=== PATIENT | female | born 1985 | race Hispanic/Latino ===

== ENCOUNTER 2024-03-09 10:05 | Emergency (ER) | payer BC, MEDICAID ==
[~2024-03-09] VITALS: Ht 162.6 cm; Wt 75.3 kg
[2024-03-09 11:35] VITALS: BP 122/61; PULSE 58; RESP 18; TEMP 98.8; O2SAT 100
[2024-03-09 11:43] LABS: BILIRUBIN,URINE NEGATIVE (NEGATIVE); COLOR,URINE LIGHT-YELLOW (YELLOW); GLUCOSE, URINE (UA) NEGATIVE (NEGATIVE); KETONES,URINE NEGATIVE (NEGATIVE); LEUKOCYTE ESTERASE ,URINE NEGATIVE Leu/uL (NEGATIVE); NITRATE,URINE NEGATIVE (NEGATIVE); OCCULT BLOOD,URINE NEGATIVE (NEGATIVE); PROTEIN,URINE NEGATIVE (NEGATIVE); UROBILINOGEN,URINE 0.2 mg/dL (0.2-1.0)
[2024-03-09 11:48] LABS: ADD UA MICROSCOPIC YES; APPEARANCE,URINE HAZY (CLEAR)
[2024-03-09 11:51] LABS: BACTERIA,URINE RARE /HPF (None Seen); MUCUS,URINE RARE LPF (None Seen); RBC,URINE 0-1 /HPF (0-1); SQUAMOUS EPITHELIAL CELL,UR MOD /HPF (0-2); WBC,URINE 0-1 /HPF (0-1)
--- NOTE | 2024-03-09 11:52 | HMCIMG ---
SACRUM/COCCYX 2+VWS REASON: Pain TECHNIQUE: 4 views of the sacrum were obtained. FINDINGS: There is normal appearance of the sacrum and coccyx. There are no visible fractures. SI joints appear normal as does the symphysis pubis. Soft tissues appear unremarkable as well. There is an IUD visible in the mid pelvis. IMPRESSION: 1. Normal views of the sacrum and coccyx.
--- NOTE | 2024-03-09 11:52 | HMCIMG ---
EXAM: LUMBAR SPINE 4+VWS REASON: Pain. COMPARISON: None. TECHNIQUE: 3 views of the lumbar spine were obtained. FINDINGS: There is normal appearance of the lumbar vertebral bodies. Disc interspace heights are preserved. Alignment is normal. There are no visible fractures. Soft tissues appear unremarkable. IMPRESSION: 1. Normal lumbar spine.
[2024-03-09 11:53] LABS: HCG,QUALITATIVE URINE NEGATIVE (NEGATIVE)
[2024-03-09] MEDS ORDERED: IBUP-2070 PO (12:06)
[2024-03-09] MEDS ORDERED: METH-811 PO (12:06)
--- NOTE | 2024-03-09 12:06 | ERN ---
General Chief Complaint: Back Pain-No Injury Stated Complaint: LOW BACK PAIN AFTER DRYING HAIR Time Seen by MD: 10:06 Time Seen by Midlevel: 10:06 Source: patient History of Present Illness Allergies: Coded Allergies: No Known Allergies (Unverified Allergy, Unknown, 03/09/24) Past Medical History Past Medical History: No Pertinent History, Hypothyroid Past Surgical History: None Results Laboratory and Microbiology Lab and Micro Result Laboratory Tests Test 03/09/24 11:22 Urine Color LIGHT-YELLOW (YELLOW) Urine Appearance HAZY (CLEAR) Urine pH 6.0 (5.0-8.0) Urine Specific [place] 1.017 (1.001-1.031) Urine Protein NEGATIVE mg/dL (NEGATIVE) Urine Glucose (UA) NEGATIVE mg/dL (NEGATIVE) Urine Ketones NEGATIVE mg/dL (NEGATIVE) Urine Occult Blood NEGATIVE (NEGATIVE) Urine Nitrate NEGATIVE (NEGATIVE) Urine Bilirubin NEGATIVE mg/dL (NEGATIVE) Urine Urobilinogen 0.2 mg/dL (0.2-1.0) Urine Leukocyte Esterase NEGATIVE [place]/uL Urine RBC 0-1 /HPF (0-1) Urine WBC 0-1 /HPF (0-1) Urine Squamous Epithelial Cells MOD /HPF (0-2) Urine Bacteria RARE /HPF (None Seen) Urine HCG, Qualitative NEGATIVE (NEGATIVE) ED Course Orders Procedure Category Date Status Time Urinalysis Profile LAB 03/09/24 Complete 10:11 ,Urine Test LAB 03/09/24 Complete 10:11 Lumbar Spine 4+Vws RAD 03/09/24 Resulted 10:38 Sacrum/Coccyx 2+Vws RAD 03/09/24 Resulted 10:38 Methocarbamol PHA 03/09/24 Complete (Methocarbamol) 11:00 Ketorolac PHA 03/09/24 Verified Tromethamine 30mg/Ml 12:30 Current Medications Medications (Trade) Dose Ordered Sig/Clau Route PRN Reason Start Time Stop Time Status Last Admin Dose Admin Methocarbamol (methoCARBamol) 1,000 mg ONCE ONCE PO 03/09/24 11:00 03/09/24 11:01 DC Vital Signs Date Time Temp Pulse Resp B/P (MAP) Pulse Ox O2 Delivery O2 Flow Rate FiO2 03/09/24 11:35 98.8 58 18 122/61 100 Room Air* 0 21 03/09/24 10:06 98.8 58 16 122/61 100 Room Air 0 DX & DISP Disposition: Discharge Departure Impression: Primary Impression: Lumbar back sprain Additional Impression: Muscle spasm Condition: Stable Scripts Ibuprofen (Ibuprofen) 600 Mg Tablet 600 MG PO Q6H PRN for PAIN for 5 Days, #20 TAB Prov: DESTINY MASCORRO 03/09/24 Methocarbamol (Methocarbamol) 500 Mg Tablet 1000 MG PO TID for 5 Days, #30 TAB Prov: DESTINY MASCORRO 03/09/24 Additional Instructions: Discharge home. Rest. Follow up with primary care DrJames in 24 hours. Return to the ER for any acute changes or worsening symptoms. If any medications were prescribed take as directed. Okay to continue home medications unless otherwise discussed during your visit in the emergency room today. Patient was also advised to follow-up with primary care physician in 1 to 2 days for continued monitoring. Referrals: SELF,REFERRAL (PCP) I participated in the following activities of this patient's care: For this patient encounter, I reviewed the PA or FLIPPING MACHINE OPERATOR documentation, treatment plan, and medical decision making. I did not have [id number] time with this patient. I will sign as the reviewing DrJames And agree with the treatment plan and disposition. DESTINY MASCORRO Mar 09, 2024 12:06
[2024-03-09] MEDS: ketOROlac 30MG VIAL (30MG/ML) IM ONE (12:30)
[2024-03-09] MEDS: methoCARBamol 500 MG TABLET PO ONE (12:30)
== END 2024-03-09 12:48 | disposition home or self-care (01) ==
LOC: EDH 10:05
DX: S33.5XXA Sprain of ligaments of lumbar spine, initial encounter (principal); M62.838 Other muscle spasm; X58.XXXA Exposure to other specified factors, initial encounter; Y93.89 Activity, other specified; Y92.89 Other specified places as the place of occurrence of the external cause; Y99.8 Other external cause status
CPT/HCPCS: 99284; 81001; 81025; 72110; 72220; 96372; J1885